=== PATIENT | female | born 2005 | race Caucasian/White ===

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

== ENCOUNTER 2023-12-01 18:52 | Emergency (ER) | payer OTHER ==
[~2023-12-01] VITALS: Ht 174.6 cm; Wt 85.3 kg
[~2023-12-01 18:52] MED LIST changes: -LIDOCAINE 2% 100MG/5ML SDV (FOR ANES.) As Ordered ONE; -LR 1,000 ML IV ONE; -MIDAZOLAM INJ 2MG/2ML VIAL (J2250 PER 1MG) As Ordered ONE; -ROCURONIUM BROMIDE 50 MG/5 ML VIAL As Ordered ONE; -fentaNYL 250 MCG/5 ML INJECTION (J3010) As Ordered ONE; -propofoL 200 MG/20 ML VIAL As Ordered ONE
[2023-12-01 19:00] VITALS: BP 105/62; TEMP 97.6; O2SAT 100
[2023-12-01] MEDS ORDERED: IBUP-1022 PO (21:26)
[2023-12-01] MEDS: IBUPROFEN 600MG TAB PO ONE (21:30)
== END 2023-12-01 21:39 | disposition home or self-care (01) ==
LOC: M ED 18:52 → EDBD 18:52 → M ED 21:39
DX: S83.004A Unspecified dislocation of right patella, initial encounter (principal); X50.1XXA Overexertion from prolonged static or awkward postures, initial encounter; Y92.39 Other specified sports and athletic area as the place of occurrence of the external cause; Y93.9 Activity, unspecified; Y99.9 Unspecified external cause status; F95.2 Tourette's disorder; F17.290 Nicotine dependence, other tobacco product, uncomplicated

== ENCOUNTER → 2023-12-21 | Outpatient (CLI) | payer OTHER ==
[~2023-12-21] MED LIST changes: +IBUP-1022 PO
== END ==
LOC: M PLAIMG 12-17 06:56
PROVIDERS: ATTEND Physician Assistant
DX: S83.014A Lateral dislocation of right patella, initial encounter (principal); X58.XXXA Exposure to other specified factors, initial encounter; Y92.9 Unspecified place or not applicable

== ENCOUNTER → 2024-03-23 | Outpatient (REF) | payer OTHER | LOC: M SFHCWAGY 17:47 | PROVIDERS: ATTEND Nurse Practitioner Family | DX: Z12.4 Encounter for screening for malignant neoplasm of cervix (principal) | CPT/HCPCS: 87624; G0123 ==